=== PATIENT | male | born 1990 | race Caucasian/White ===

== ENCOUNTER 2016-12-03 11:55 | Day surgery (SDC) | payer BC ==
[~2016-12-03] VITALS: Ht 182.9 cm; Wt 88.0 kg
[~2016-12-03 11:55] MED LIST: LIDOCAINE/PF 1%-EPI 1:200K, 30ML ONE; NONE PER PT; ROPIvacaine/PF 0.5%, 30 ML ONE
[2016-12-03] MEDS ORDERED: ROPivacaine/PF 0.2%, 10 ML ONE (11:58)
[2016-12-03] MEDS ORDERED: ROPIvacaine/PF 0.2%, 20 ML ONE (11:58)
[2016-12-03] MEDS ORDERED: LACTATED RINGERS 1,000 ML IV SCH (12:21)
[2016-12-03 12:22] VITALS: BP 158/93
[2016-12-03] MEDS ORDERED: FENTANYL PF 250 MCG/5ML ONE (13:48)
[2016-12-03] MEDS ORDERED: MIDAZOLAM 1 MG/ML, 2ML ONE (13:48)
[2016-12-03] MEDS ORDERED: DEXAMETHASONE 4 MG/ML, 1ML ONE (14:15)
[2016-12-03] MEDS ORDERED: KETOROLAC 30 MG/1 ML ONE (14:15)
[2016-12-03] MEDS ORDERED: LIDOCAINE 1%-EPI 1:100K, 30ML INFIL ONE (14:15)
[2016-12-03] MEDS ORDERED: CEFAZOLIN 1,000 MG ONE (14:15)
[2016-12-03] MEDS ORDERED: ROPIvacaine/PF 0.5%, 30 ML INFIL ONE (14:15)
[2016-12-03] MEDS ORDERED: PROPOFOL 10 MG/ML, 20ML ONE (14:15)
[2016-12-03] MEDS ORDERED: ONDANSETRON 2MG/ML, 2ML IVPush PRN (15:30)
[2016-12-03] MEDS ORDERED: hydrALAzine 20 MG/ML, 1ML IV PRN (15:30)
[2016-12-03] MEDS ORDERED: PROMETHAZINE 25 MG/ML, 1ML IV PRN (15:30)
[2016-12-03] MEDS ORDERED: LABETALOL 5MG/ML, 20ML IV PRN (15:30)
[2016-12-03] MEDS ORDERED: OXYcodone 5 MG/5 ML ORAL.SOL UDC PO PRN (15:30)
[2016-12-03] MEDS ORDERED: EPHEDRINE 50 MG/ML, 1ML IVPush PRN (15:30)
[2016-12-03] MEDS ORDERED: ALBUTEROL SULFATE 2.5 MG/3 ML NPPB PRN (15:30)
[2016-12-03] MEDS ORDERED: HYDROmorphone 1 MG/ML, 1ML IV PRN (15:30)
[2016-12-03] MEDS ORDERED: MEPERIDINE/PF 25MG/0.5ML IVPush PRN (15:30)
[2016-12-03] MEDS ORDERED: MIDAZOLAM 1 MG/ML, 2ML IV PRN (15:30)
[2016-12-03] MEDS ORDERED: FENTANYL PF 100 MCG/2ML IV PRN (15:30)
[2016-12-03] MEDS ORDERED: METOPROLOL 1 MG/ML, 5ML IV PRN (15:30)
[2016-12-03] MEDS ORDERED: ACETAMINOPHEN 325 MG TABLET PO PRN (15:30)
[2016-12-03] MEDS ORDERED: HYDROmorphone 2 MG/ML, 1ML ONE (15:41)
[2016-12-03] MEDS ORDERED: OXYcodone 5 MG/5 ML ORAL.SOL UDC ONE (15:41)
[2016-12-03] MEDS ORDERED: MEPERIDINE/PF 50 MG/ML ONE (15:44)
== END 2016-12-03 19:35 | disposition home or self-care (01) ==
LOC: OUT 11:55
PROVIDERS: ATTEND Orthopaedic Surgery
DX: S83.511A Sprain of anterior cruciate ligament of right knee, initial encounter (principal); S83.281A Other tear of lateral meniscus, current injury, right knee, initial encounter; S83.241A Other tear of medial meniscus, current injury, right knee, initial encounter; S83.8X1A Sprain of other specified parts of right knee, initial encounter; X58.XXXA Exposure to other specified factors, initial encounter; Y93.9 Activity, unspecified; Y92.89 Other specified places as the place of occurrence of the external cause; Y99.8 Other external cause status
CPT/HCPCS: 20680; 29880; 29888; C1762; J0690; J1100; J1170; J1885; J2175; J2250; J2704; J2795; J3010; J3490; J7120